=== PATIENT | male | born 1995 | race Caucasian/White ===

== ENCOUNTER 2022-03-12 13:12 | Emergency (ER) | payer OTHER ==
[2022-03-12 13:22] VITALS: BP 144/69
--- NOTE | 2022-03-12 13:32 | ED Physician Documentation ---
History of Present Illness - Stated complaint Stated Complaint: STITCH REMOVAL - Chief complaint Chief Complaint: Laceration - History obtained from History obtained from: Patient - History of Present Illness Timing: How many weeks ago (1) Pain level max: 0 Pain level now: 0 - Additonal information Additional information: 27-year-old male presents for staple removal from his scalp. They were placed about a week ago after a head injury on an airplane. He has no complaints. No fevers. No drainage. Nothing makes it better or worse Review of Systems Constitutional: denies: Fever, Chills Respiratory: denies: Cough GI: denies: Vomiting, Diarrhea Skin: denies: Rash Musculoskeletal: denies: Neck pain, Back pain Neurologic: denies: Focal weakness, Numbness, Headache PD PAST MEDICAL HISTORY - Past Medical History Past Medical History: No Cardiovascular: None Respiratory: None Neuro: None Endocrine/Autoimmune: None GI: None : None HEENT: None Psych: None Musculoskeletal: None Derm: None - Past Surgical History Past Surgical History: No - Present Medications Home Medications: Ambulatory Orders Medication Instructions Recorded Confirmed No Known Home Medications 03/04/22 03/04/22 - Allergies Allergies/Adverse Reactions: Allergies Allergy/AdvReac Type Severity Reaction Status Date / Time No Known Drug Allergies Allergy Verified 03/12/22 13:22 - Social History Does the pt smoke?: No Smoking Status: Never smoker Does the pt drink ETOH?: Yes Does the pt have substance abuse?: No - Immunizations Immunizations are current?: Yes - POLST Patient has POLST: No PD ED PE NORMAL - Vitals Vital signs reviewed: Yes - General General: Alert and oriented X 3, No acute distress - HEENT HEENT: Moist mucous membranes, Other (Laceration to the scalp is clean, dry, intact. No signs of infection) - Respiratory Respiratory: No respiratory distress - Derm Derm: Warm and dry Results - Vitals Vitals: Vital Signs - 24 hr 03/12/22 13:18 Temperature 36.7 C Heart Rate 61 Respiratory 16 Rate Blood Pressure 144/69 H O2 Saturation 100 Oxygen O2 Source Room air Procedures - Suture/staple Removal (location) scalp Suture/staple removal: # juan ramon (all), No complications PD MEDICAL DECISION MAKING - ED course Complexity details: considered differential, d/w patient ED course: All juan ramon are removed. No signs of infection. Wound appears healed. Patient counseled regarding signs and symptoms for which I believe and urgent re- evaluation would be necessary. Patient with good understanding of and agreement to plan and is comfortable going home at this time This document was made in part using voice recognition software. While efforts are made to proofread this document, sound alike and grammatical errors may occur. Departure - Departure Disposition: 01 Home, Self Care Clinical Impression: Removal of staple Condition: Good Instructions: ED Stap Removal No Complication Follow-Up: your,doctor as needed [Other] Comments: Your juan ramon were removed today. Please follow-up with your doctor for further care. Return if you worsen. Discharge Date/Time: 03/12/22 13:44
== END 2022-03-12 13:44 | disposition home or self-care (01) ==
LOC: ED 13:12
DX: S01.01XD Laceration without foreign body of scalp, subsequent encounter (principal); W22.8XXD Striking against or struck by other objects, subsequent encounter
CPT/HCPCS: 99281; 99282